=== PATIENT | female | born 1980 | race Caucasian/White ===

== ENCOUNTER 2019-03-08 04:09 | Emergency (ER) | payer SELFPAY ==
[~2019-03-08] VITALS: Ht 157.5 cm; Wt 51.0 kg
[2019-03-08] MEDS ORDERED: ASPIRIN 81MG TABLET PO ONE (04:30)
[2019-03-08 04:40] VITALS: BP 124/83
== END 2019-03-08 05:16 | disposition home or self-care (01) ==
LOC: ER 04:09
DX: R07.89 Other chest pain (principal); F12.10 Cannabis abuse, uncomplicated; R00.0 Tachycardia, unspecified; F17.290 Nicotine dependence, other tobacco product, uncomplicated
CPT/HCPCS: 93005; 99283